=== PATIENT | male | born 1975 | race Hispanic/Latino ===

== ENCOUNTER 2022-02-25 14:46 | Emergency (ER) | payer MEDICAID, OTHER ==
[~2022-02-25] VITALS: Ht 170.2 cm; Wt 90.7 kg
[2022-02-25] MEDS ORDERED: IBUP-2070 PO (17:06)
[2022-02-25] MEDS ORDERED: CYCL10TA16 PO (17:06)
[2022-02-25 17:20] VITALS: BP 148/64
[2022-02-25] MEDS ORDERED: CYCLOBENZAPRINE HCL 10 MG TABLET PO ONE (17:30)
[2022-02-25] MEDS ORDERED: KETOROLAC 30MG VIAL (30MG/ML) IM ONE (17:30)
== END 2022-02-25 17:31 | disposition home or self-care (01) ==
LOC: EDH 14:46
DX: M54.32 Sciatica, left side (principal); E78.00 Pure hypercholesterolemia, unspecified
CPT/HCPCS: 99283; 96372; J1885